=== PATIENT | female | born 2000 | race Hispanic/Latino ===

== ENCOUNTER 2024-12-12 10:37 | Emergency (ER) | payer OTHER ==
[2024-12-12] MEDS ORDERED: Ketorolac Tromethamine 30 MG (1 mL) VIAL ONE (10:56)
[2024-12-12] MEDS ORDERED: HYDROcodone/Acetaminophen 5/325 mg Tablet ONE (10:56)
[2024-12-12 11:41] LABS: Bilirubin Neg (Negative); Blood, Urine 150 (Negative); Clarity Clear (Clear); Glucose, Urine (Dipstick) Normal (Negative); Ketone, Urine Negative (Negative); Leukocyte 25 (Negative); Nitrite Negative (Negative); Protein, Urine (Dipstick) 30 mg/dl (Neg-Trace); Specific Gravity, Urine 1.025 (1.005-1.030); Urobilinogen Normal mg/dL (Less than 2)
[2024-12-12 11:48] LABS: Pregnancy Test - Urine (BHCG) Negative (Negative); Pregu Control Background? CLEAR/WHITE (CLR/WHITE); Pregu Control Bar Appear? YES (CONTROL BAR); Specific Gravity 1.025 (1.002-1.036)
[2024-12-12 12:05] LABS: CAUTI Indications for Culture Pelvic or flank pain
[2024-12-12 12:06] LABS: Bacteria/HPF 1+ HPF (None Seen)
[2024-12-12 12:07] LABS: Urine Culture Reflex No No
== END 2024-12-12 12:37 | disposition home or self-care (01) ==
LOC: CSHERS 10:37
DX: N94.6 Dysmenorrhea, unspecified (principal); R25.2 Cramp and spasm
CPT/HCPCS: 76856; 81001; 81025; 96372; J1885